=== PATIENT | female | born 1980 | race Caucasian/White ===

== ENCOUNTER 2019-01-02 17:33 | Emergency (ER) | payer BC ==
[2019-01-02 20:30] VITALS: BP 114/70
--- NOTE | 2019-01-02 20:45 | UC ---
General HPI - HPI Summary HPI Summary: day 3 of sore throat, post nasal drip. yesterday fever to 101. no fever now. no headache or bodyaches. - History of Current Complaint Chief Complaint: UCRespiratory Stated Complaint: SORE THROAT, FEVER Time Seen by Provider: 01/02/19 20:38 Hx Obtained From: Patient Hx Last Menstrual Period: 12/19/18 Pain Intensity: 4 Associated Signs & Symptoms: Negative: Abdominal Pain, Cough, Diarrhea, Nausea, SOB, Vomiting - Allergy/Home Medications Allergies/Adverse Reactions: Allergies Allergy/AdvReac Type Severity Reaction Status Date / Time ofloxacin [From Floxin] Allergy Hives Verified 01/02/19 20:30 Penicillins Allergy Hives Verified 01/02/19 20:30 Sulfa (Sulfonamide Allergy flush/body Verified 01/02/19 20:30 Antibiotics) aches PMH/Surg Hx/FS Hx/Imm Hx Previously Healthy: Yes - Surgical History Surgical History: Yes Surgery Procedure, Year, and Place: gallbladder - Family History Known Family History: Positive: None - Social History Alcohol Use: Occasionally Substance Use Type: None Smoking Status (MU): Never Smoked Tobacco - Immunization History Most Recent Influenza Vaccination: [id number] Review of Systems All Other Systems Reviewed And Are Negative: Yes Constitutional: Positive: Fever ENT: Positive: Sore Throat, Sinus Congestion Physical Exam Triage Information Reviewed: Yes Appearance: Well-Appearing Vital Signs: Initial Vital Signs Temp 99.3 F 01/02/19 20:24 Pulse 77 01/02/19 20:24 Resp 15 01/02/19 20:24 BP 114/70 01/02/19 20:24 Pulse Ox 100 01/02/19 20:24 Vital Signs Reviewed: Yes Eyes: Positive: Conjunctiva Clear ENT: Positive: Pharyngeal erythema - slight, TMs normal, Uvula midline. Negative: Nasal drainage, Trismus, Muffled voice, Hoarse voice Neck: Positive: Supple, Nontender, No Lymphadenopathy Respiratory: Positive: Lungs clear, Normal breath sounds, No respiratory distress Cardiovascular: Positive: RRR, No Murmur Abdomen Description: Positive: Nontender, No Organomegaly, Soft Bowel Sounds: Positive: Present Musculoskeletal: Positive: ROM Intact Neurological: Positive: Alert Psychological: Positive: Age Appropriate Behavior Skin Exam: Normal Course/Dx - Course Course Of Treatment: rapid strep=negative - Diagnoses Provider Diagnosis: URI (upper respiratory infection) Discharge - Sign-Out/Discharge Documenting (check all that apply): Patient Departure All imaging exams completed and their final reports reviewed: No Studies - Discharge Plan Condition: Stable Disposition: HOME Patient Education Materials: Upper Respiratory Infection (DC) Referrals: Fred Razo MD [Primary Care Provider] - Additional Instructions: follow up primary care if not better in 5 days or sooner if worse. - Billing Disposition and Condition Condition: STABLE Disposition: Home
== END 2019-01-02 21:06 | disposition home or self-care (01) ==
LOC: UCCORT 17:33
DX: J06.9 Acute upper respiratory infection, unspecified (principal); Z88.1 Allergy status to other antibiotic agents; Z88.0 Allergy status to penicillin; Z88.2 Allergy status to sulfonamides
CPT/HCPCS: 87651; 99201; G0463